=== PATIENT | male | born 1955 | race African-American/Black ===

== ENCOUNTER 2018-07-26 16:02 | Emergency (ER) | payer BC ==
[~2018-07-26] VITALS: Ht 185.4 cm; Wt 90.7 kg
[~2018-07-26 16:02] MED LIST: NKM
[2018-07-26 16:09] VITALS: BP 149/86
--- NOTE | 2018-07-26 16:28 | Emergency Room Report ---
History of Present Illness General Chief Complaint: Laceration Source: Patient Present Illness HPI 63-year-old male presents to the emergency department complaining of 7 out of 10 in severity pain to the left index finger with associated laceration. Patient states that originally right after the injury patient reports that she saw the bone and was able to touch it. Patient states that this injury sustained while cooking using a knife. He denies taking blood thinning medications and is right hand dominant. Pt. was first evaluated at an urgent care which performed imaging then referred pt. to the ED for possible bone exposure with associated laceration. Allergies: Coded Allergies: No Known Allergies (Unverified , 10/31/12) Patient History Past Medical History: see triage record Past Surgical History: none Pertinent Family History: none Reviewed Nursing Documentation: PMH: Agreed; PSxH: Agreed Nursing Documentation-PMH Hx Cardiac Problems: No Hx Cancer: No Hx Gastrointestinal Problems: Yes Hx Neurological Problems: No Review of Systems All Other Systems: negative except mentioned in HPI Physical Exam Vital Signs Date Time Temp Pulse Resp B/P (MAP) Pulse Ox O2 Delivery O2 Flow Rate FiO2 07/26/18 16:04 98.2 76 18 149/86 99 Room Air Sp02 EP Interpretation: reviewed, normal General Appearance: no apparent distress, alert, GCS 15, non-toxic Head: normocephalic, atraumatic Eyes: bilateral eye normal inspection, bilateral eye PERRL ENT: hearing grossly normal, normal voice Neck: full range of motion Respiratory: lungs clear, normal breath sounds, speaking full sentences Cardiovascular #1: regular rate, rhythm, normal capillary refill Musculoskeletal: back normal, gait/station normal, normal range of motion, non- tender, tender - distal tip of the right index finger Neurologic: alert, oriented x3, responsive, motor strength/tone normal, sensory intact, speech normal, grossly normal Psychiatric: judgement/insight normal Skin: normal color, no rash, warm/dry, well hydrated, laceration - avulsion laceration with nail and nail bed involvement of the right index finger. approx 2.5 cm in length. Medical Decision Making PA Attestation Dr. keita is my supervising Physician whom patient management has been discussed with. Diagnostic Impression: Primary Impression: Fingernail avulsion Qualified Codes: S61.309A - Unspecified open wound of unspecified finger with damage to nail, initial encounter Additional Impression: Avulsion of finger tip Qualified Codes: S61.209A - Unspecified open wound of unspecified finger without damage to nail, initial encounter ER Course 63-year-old male presents to the emergency department complaining of 7 out of 10 in severity pain to the left index finger with associated laceration. Patient states that originally right after the injury patient reports that she saw the bone and was able to touch it. Patient states that this injury sustained while cooking using a knife. He denies taking blood thinning medications and is right hand dominant. Pt. was first evaluated at an urgent care which performed imaging then referred pt. to the ED for possible bone exposure with associated laceration. Pt. presents to the ED c/o laceration to [ ] Ddx considered but are not limited to laceration, tendon injury, cellulitis, amputation Vital signs: are WNL, pt. is afebrile H&PE are most consistent with: avulsion laceration with nail and nail bed involvement of the right index finger. approx 2.5 cm in length. ORDERS: none required at this time, the diagnosis is clinical ED INTERVENTIONS: -Tetanus vaccine was administered as pt. vaccination status was unknown. - The wound was copiously irrigated with normal saline, and explored for foreign body for which no FB was found. - sterile Non-stick gauze applied with wet dressing by pressroom foreman -Consulted with Plastic surgeon whom recommended wet to dry dressing, and outpatient follow up in his office. pt. is d/c with his information as well as Dr. Floyd ( hand specialist/plastics) information. DISCHARGE: At this time pt. is stable for d/c to home. Will provide printed patient care instructions, and any necessary prescriptions. Care plan and follow up instructions have been discussed with the patient prior to discharge. Other X-Ray Diagnostic Results Other X-Ray Diagnostic Results : X-Ray ordered: Right Hand # of Views/Limited Vs Complete: 3 View Indication: Swelling EP Interpretation: No PA Xray: Interpretation reviewed, by supervising MD, and agrees with findings. Interpretation: no dislocation, no soft tissue swelling, no fractures, other - No subcutaneous gase noted. Impression: No acute disease Electronically Signed by: Cara Rivas PA-C Last Vital Signs Date Time Temp Pulse Resp B/P (MAP) Pulse Ox O2 Delivery O2 Flow Rate FiO2 07/26/18 16:09 98.2 78 18 149/86 99 Room Air Disposition: HOME, SELF-CARE Condition: Stable Scripts Amoxicillin/Potassium Clav 875-125* (AUGMENTIN 875-125 TABLET*) 1 Each Tablet 1 TAB ORAL TWICE A DAY for 7 Days, #14 TAB Prov: Cara Rivas 07/26/18 Referrals: Butch Floyd MD, Amir MD Patient Instructions: Nail Avulsion, Nonsutured Laceration Care Additional Instructions: Take medications as directed. Follow up with a Primary Care Provider in 3-5 days, even if your symptoms have resolved. --Please review list of primary care clinics, if you do not already have a primary care provider Return sooner to ED if new symptoms occur, or current symptoms become worse. Do not drink alcohol, drive, or operate heavy machinery while taking [ ] as this may cause drowsiness. - Please note that this Emergency Department Report was dictated using [employer]smopureartificial pearl maker technology software, occasionally this can lead to erroneous entry secondary to interpretation by the dictation equipment. Cara Rivas Jul 26, 2018 16:28
[2018-07-26] MEDS ORDERED: AUGMENTIN 875-1 EAC1 ORAL (17:18)
[2018-07-26 17:20] VITALS: BP 139/79
--- NOTE | 2018-07-27 15:50 | Diagnostic Imaging Report ---
EXAM: XR Right Finger(s), 2 or More Views CLINICAL HISTORY: PAIN TECHNIQUE: Frontal, lateral and oblique views of finger(s) of the right hand. COMPARISON: No relevant prior studies available. FINDINGS: Bones/joints: No acute displaced fracture or dislocation. Soft tissues: Unremarkable. No radiopaque foreign body. IMPRESSION: No acute displaced fracture or dislocation.
== END 2018-07-26 17:20 | disposition home or self-care (01) ==
LOC: EMR 16:19
DX: S61.317A Laceration without foreign body of left little finger with damage to nail, initial encounter (principal); W26.0XXA Contact with knife, initial encounter; Y93.G3 Activity, cooking and baking; Y92.9 Unspecified place or not applicable
CPT/HCPCS: 99283

== ENCOUNTER 2019-02-23 20:29 | Emergency (ER) | payer SELFPAY ==
[~2019-02-23] VITALS: Ht 185.4 cm; Wt 89.8 kg
[~2019-02-23 20:29] MED LIST changes: +AUGMENTIN 875-1 EAC1 ORAL
[2019-02-23] MEDS ORDERED: Neosporin Oint Ud Pkt TOPIC ONE (21:15)
[2019-02-23] MEDS ORDERED: cefTRIAXone 1 GM in NS 55 ML IVPB ONE (21:15)
--- NOTE | 2019-02-23 21:15 | Emergency Room Report ---
History of Present Illness General Chief Complaint: Lower Extremity Injury Source: Patient Present Illness [facility] This is a 63-year-old male with no past medical history. He presents with chief complaint of a puncture wound to his left foot. [place] he was puncture by splinter from the wood. He was walking barefoot. He pulled it out. Later this afternoon it started getting swollen and painful. No fever chills but no nausea no vomiting. Pain is 8 out of 10. Worse with bearing weight. Denies any other complaint.. No other injury. Tetanus is up-to-date. Allergies: Coded Allergies: No Known Allergies (Unverified , 10/31/12) Patient History Past Medical History: see triage record, old chart reviewed Past Surgical History: none Pertinent Family History: none Social History: Denies: smoking Immunizations: UTD Reviewed Nursing Documentation: PMH: Agreed; PSxH: Agreed Nursing Documentation-PMH Past Medical History: No Stated History Hx Cardiac Problems: No Hx Cancer: No Hx Gastrointestinal Problems: Yes Hx Neurological Problems: No Review of Systems Eye: Denies: eye pain, blurred vision ENT: Denies: ear pain, nose congestion, throat swelling Respiratory: Denies: cough, shortness of breath Cardiovascular: Denies: chest pain, palpitations Gastrointestinal: Denies: abdominal pain, diarrhea, nausea, vomiting Musculoskeletal: Reports: muscle pain; Denies: back pain, joint pain Skin: Denies: rash Neurological: Denies: headache, numbness Endocrine: Denies: increased thirst, increased urine Hematologic/Lymphatic: Denies: easy bruising All Other Systems: negative except mentioned in HPI Physical Exam Vital Signs Date Time Temp Pulse Resp B/P (MAP) Pulse Ox O2 Delivery O2 Flow Rate FiO2 02/23/19 21:10 97.2 58 18 142/85 (104) 100 Room Air Vitals unremarkable Sp02 EP Interpretation: reviewed, normal General Appearance: well appearing, no apparent distress, alert Head: normocephalic, atraumatic Eyes: bilateral eye PERRL, bilateral eye EOMI ENT: hearing grossly normal, normal pharynx Neck: full range of motion, supple, no meningismus Respiratory: chest non-tender, lungs clear, normal breath sounds Cardiovascular #1: regular rate, rhythm, no murmur Gastrointestinal: normal bowel sounds, non tender, no mass, no organomegaly, no bruit, non-distended Musculoskeletal: back normal, normal range of motion, other - On the sole of his left foot over the pad, there is a puncture wound at the base of the great toe and second toe. There is diffuse tenderness. No crepitance. Normal. Psychiatric: mood/affect normal Medical Decision Making Diagnostic Impression: Primary Impression: Puncture wound Additional Impression: Cellulitis of foot, except toe ER Course Patient with a into his foot. There may be some early cellulitis. He was barefoot walking on the beach. This concerning for other pathogen like vibrio and aeromonas. Does of rocephin given. will dc home. I explored the wound after given a dose of lidocaine locally. No foreign body seen. There was 1 grain of sand. Wound was irrigated copiously. Dressing done. Crutches given. Other X-Ray Diagnostic Results Other X-Ray Diagnostic Results : X-Ray ordered: Left foot x-rays # of Views/Limited Vs Complete: 3 View Indication: Pain EP Interpretation: Yes Interpretation: no dislocation, no soft tissue swelling, no fractures Impression: No acute disease Electronically Signed by: Marlon Villafana MD Last Vital Signs Date Time Temp Pulse Resp B/P (MAP) Pulse Ox O2 Delivery O2 Flow Rate FiO2 02/23/19 21:10 97.2 58 18 142/85 (104) 100 Room Air Status: improved Disposition: HOME, SELF-CARE Condition: Stable Scripts Doxycycline Monohydrate* (DOXYCYCLINE MONOHYDRATE*) 100 Mg Capsule 100 MG ORAL Q12H, #14 CAP 0 Refills Prov: Marlon Villafana MD 02/23/19 Ciprofloxacin Hcl* (CIPROFLOXACIN HCL*) 500 Mg Tablet 500 MG ORAL Q12H, #14 TAB 0 Refills Prov: Marlon Villafana MD 02/23/19 Additional Instructions: Follow-up your doctor in 2 3 days for recheck. Keep wound clean. No swimming. Return if worse. Marlon Villafana MD Feb 23, 2019 21:14
--- NOTE | 2019-02-23 21:38 | NUR ---
ED Nurse Note: pt walked in c/o left foot pain, pt reports when he was walking out of the beach he stepped on a wooden piece, noted dried blood with small wound, redness, and mild swelling w/ tenderness, cms intact, will cont monitor.
[2019-02-23] MEDS ORDERED: DOXYCYCLINE MO100 MG ORAL (22:01)
[2019-02-23] MEDS ORDERED: CIPROFLOXACIN500 M2 ORAL (22:01)
[2019-02-23 22:15] VITALS: BP 135/86
--- NOTE | 2019-02-23 22:15 | NUR ---
ED Nurse Note: pt cleared to be d/c per ERMD, pt discharge and aftercare instruction provided w/ prescription, pt education done via discussion and handout, pt advised to follow up with pcp or return to ed if changes in condition, wound care done, vss, ambulatory w/ steady gait, iv d/c and id band removed, pt left w/ all belongings, crutches provided per order.
--- NOTE | 2019-02-24 12:32 | Diagnostic Imaging Report ---
Indication: Foot pain Comparison: None Findings: 3 views of the left foot were obtained. No acute fractures, malalignment, erosions or periostitis are identified. Soft tissues are unremarkable. Impression: No acute findings
== END 2019-02-23 22:15 | disposition home or self-care (01) ==
LOC: EMR 21:29
DX: S91.332A Puncture wound without foreign body, left foot, initial encounter (principal); L03.116 Cellulitis of left lower limb; X58.XXXA Exposure to other specified factors, initial encounter; Y92.9 Unspecified place or not applicable
CPT/HCPCS: 73630; 96365; 99284; J0696

== ENCOUNTER 2019-03-03 14:01 | Emergency (ER) | payer SELFPAY ==
[~2019-03-03] VITALS: Ht 185.4 cm; Wt 90.3 kg
[~2019-03-03 14:01] MED LIST changes: +CIPROFLOXACIN500 M2 ORAL; +DOXYCYCLINE MO100 MG ORAL
--- NOTE | 2019-03-03 14:50 | NUR ---
ED Nurse Note: Pt injured his L foot while getting out of the beach x 1 week ago. Puncture wound noted. no active bleeding. Pt stated prior to arrival, pt noted pus coming out of the wound. He has already been taking antibiotics LOGISTICS TECH. Pain 2/10 ramses. AOx4, VSS. Will cont to monitor.
[2019-03-03 14:52] VITALS: BP 142/74
--- NOTE | 2019-03-03 15:20 | Emergency Room Report ---
History of Present Illness General Chief Complaint: Wound Recheck/Suture Removal Source: Patient Present Illness HPI 63-year-old male with no significant past medical history here requesting reevaluation of his wound and left foot. Patient was here a week ago and was diagnosed with puncture wound of left foot imaging showed no foreign body. Patient was discharged with doxycycline and ciprofloxacin and is compliant taking it. Patient however has not been taking any anti-inflammatories for pain. Patient reports increased swelling and pain 5 out of 10 the affected side. Denies pain radiation, calf tenderness, tingling numbness. 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 Chest pain, shortness of breath, palpitation, abdominal pain, no other associated symptoms. Minimal swelling noted to left foot however not warm to touch. No signs of infection noted. Puncture wound is healing. No motor or sensory deficits noted Allergies: Coded Allergies: No Known Allergies (Unverified , 10/31/12) Patient History Past Medical History: see triage record Past Surgical History: unable to obtain Pertinent Family History: none Immunizations: UTD Reviewed Nursing Documentation: PMH: Agreed; PSxH: Agreed Nursing Documentation-PMH Past Medical History: No Stated History Hx Cardiac Problems: No Hx Cancer: No Hx Gastrointestinal Problems: Yes Hx Neurological Problems: No Review of Systems All Other Systems: negative except mentioned in HPI Physical Exam Vital Signs Date Time Temp Pulse Resp B/P (MAP) Pulse Ox O2 Delivery O2 Flow Rate FiO2 03/03/19 14:11 97.2 62 19 149/86 (107) 96 Room Air Sp02 EP Interpretation: reviewed, normal General Appearance: no apparent distress, alert, GCS 15, non-toxic Head: normocephalic, atraumatic Eyes: bilateral eye normal inspection, bilateral eye PERRL ENT: hearing grossly normal, normal pharynx, no angioedema, normal voice Neck: full range of motion, supple/symm/no masses Respiratory: chest non-tender, lungs clear, normal breath sounds, speaking full sentences Cardiovascular #1: regular rate, rhythm, no edema Cardiovascular #2: 2+ dorsalis pedis (R), 2+ dorsalis pedis (L) Gastrointestinal: normal inspection, non tender, soft Genitourinary: no CVA tenderness Musculoskeletal: back normal, non-tender, no calf tenderness, swelling - Left foot on the dorsum , healing puncture wounds no signs of cellulitis Neurologic: alert, oriented x3, responsive, motor strength/tone normal, sensory intact, speech normal Psychiatric: judgement/insight normal, memory normal, mood/affect normal, no suicidal/homicidal ideation Skin: other - Healing puncture wound left foot no signs of cellulitis Lymphatic: no adenopathy Medical Decision Making PA Attestation All diagnoses and treatment plans were reviewed and discussed with my supervising physician Dr. Simmons Diagnostic Impression: Primary Impression: Encounter for post-traumatic wound check Additional Impression: Puncture wound of foot ER Course 63-year-old male with no significant past medical history here requesting reevaluation of his wound and left foot. Patient was here a week ago and was diagnosed with puncture wound of left foot imaging showed no foreign body. Patient was discharged with doxycycline and ciprofloxacin and is compliant taking it. Patient however has not been taking any anti-inflammatories for pain. Patient reports increased swelling and pain 5 out of 10 the affected side. Denies pain radiation, calf tenderness, tingling numbness. 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 Chest pain, shortness of breath, palpitation, abdominal pain, no other associated symptoms. Minimal swelling noted to left foot however not warm to touch. No signs of infection noted. Puncture wound is healing. No motor or sensory deficits noted Ddx considered but are not limited to : Cellulitis, DVT, superficial infection, abscess Vital signs: are WNL, pt. is afebrile H&PE are most consistent with: Posttraumatic wound check, puncture wound healing ORDERS: X-ray for reevaluation of the foot, wound clean and dress, ibuprofen ED INTERVENTIONS: Wound clean and dress DISCHARGE: At this time pt. is stable for d/c to home. Will provide printed patient care instructions, and any necessary prescriptions. Care plan and follow up instructions have been discussed with the patient prior to discharge. Take anti-inflammatories as prescribed follow-up with primary care provider for emergency room if any tingling numbness MRI may be needed to be requested by your primary care. Other X-Ray Diagnostic Results Other X-Ray Diagnostic Results : # of Views/Limited Vs Complete: 3 View Indication: Pain EP Interpretation: Yes PA Xray: Interpretation reviewed, by supervising MD, and agrees with findings. Interpretation: no dislocation, no soft tissue swelling, no fractures Impression: No acute disease Electronically Signed by: Myriam Hairston PA-C Last Vital Signs Date Time Temp Pulse Resp B/P (MAP) Pulse Ox O2 Delivery O2 Flow Rate FiO2 03/03/19 14:52 97.2 84 20 142/74 96 Room Air Disposition: HOME, SELF-CARE Condition: Stable Scripts Ibuprofen (Ibu) 800 Mg Tablet 800 MG PO TID, #30 TAB Prov: Myriam Rodriguez 03/03/19 Referrals: NOT CHOSEN IPA/MD,REFERRING (PCP) Patient Instructions: Wound Check Additional Instructions: Follow-up with your primary care provider for referral to burlap spreader elevate affected area take anti-inflammatories as been prescribed. Myriam Rodriguez Mar 03, 2019 15:20
[2019-03-03] MEDS ORDERED: IBU800 MG PO (15:22)
[2019-03-03 15:30] VITALS: BP 138/75
--- NOTE | 2019-03-03 15:30 | NUR ---
ER DISCHARGE NOTE: Patient is cleared to be discharged per ERMD, pt is aox4, on room air, with stable vital signs. pt was given dc and prescription instructions, pt was able to verbalize understanding, pt id band removed. pt is able to ambulate with steady gait. pt took all belongings.
== END 2019-03-03 15:30 | disposition home or self-care (01) ==
LOC: EMR 14:50
DX: S91.332D Puncture wound without foreign body, left foot, subsequent encounter (principal); X58.XXXD Exposure to other specified factors, subsequent encounter
CPT/HCPCS: 99283